=== PATIENT | male | born 1955 | race Caucasian/White ===

== ENCOUNTER → 2017-11-14 | Outpatient (CLI) | payer BC ==
[2017-11-14 11:10] LABS: ADD MAN DIFF? NO
[2017-11-14 11:22] LABS: WHITE BLOOD COUNT 5.4 10^3/ul (4.8-10.8)
[2017-11-14 11:23] LABS: BASOPHIL # 0.1 10^3/ul (0.0-0.1); BASOPHILS % 1.1 % (0.0-2.0); EOSINOPHILS # 0.2 10^3/ul (0.0-0.5); HEMATOCRIT 43.7 % (42.0-52.0); HEMOGLOBIN 15.6 g/dl (14.0-18.0); LYMPHOCYTES # 1.8 10^3/ul (0.8-2.9); LYMPHOCYTES % 33.1 % (15.0-51.0); MEAN CORPUSCULAR HEMOGLOBIN 30.7 pg (29.0-33.0); MEAN CORPUSCULAR HGB CONC 35.7 g/dl (32.0-37.0); MEAN PLATELET VOLUME 9.6 fl (7.4-10.4); MONOCYTE # 0.4 10^3/ul (0.3-0.9); MONOCYTES % 6.8 % (0.0-11.0); NEUTROPHILS % 55.6 % (39.0-77.0); PLATELET COUNT 235 10^3/UL (140-415); RED BLOOD COUNT 5.08 10^6/ul (4.70-6.10); RED CELL DISTRIBUTION WIDTH 12.9 % (11.5-14.5)
[2017-11-14 11:45] LABS: ALANINE AMINOTRANSFERASE 28 IU/L (13-69); ALBUMIN 4.3 g/dl (3.3-4.9); ALBUMIN/GLOBULIN RATIO 1.53; ALKALINE PHOSPHATASE 78 IU/L (42-121); ANION GAP 13 (8-16); ASPARTATE AMINO TRANSFERASE 22 IU/L (15-46); BILIRUBIN,INDIRECT 1.1 mg/dl (0-1.1); BILIRUBIN,TOTAL 1.1 mg/dl (0.2-1.3); BLOOD UREA NITROGEN 21 mg/dl (7-20); CARBON DIOXIDE 27 mmol/L (21-31); CHLORIDE 106 mmol/L (97-110); CHOL/HDL RATIO 4.8 RATIO; CHOLESTEROL 192 mg/dl (100-200); CREATININE 0.81 mg/dl (0.61-1.24); GLUCOSE 117 mg/dl (70-220); HDL CHOLESTEROL 40 mg/dl (30-78); LDL CHOLESTEROL,CALCULATED 129 mg/dl; POTASSIUM 4.1 mmol/L (3.5-5.1); SODIUM 142 mmol/L (135-144); TOTAL PROTEIN 7.1 g/dl (6.1-8.1); TRIGLYCERIDES 113 mg/dl (0-149)
[2017-11-14 11:48] LABS: HEMOGLOBIN A1C 5.9 % (0-5.9)
[2017-11-14 11:53] LABS: PT RATIO 1.2
[2017-11-14 12:29] LABS: INR 1.22; PROTIME 15.6 Sec (11.9-14.9)
== END | disposition home or self-care (01) ==
LOC: LAB 10:57
DX: N40.0 Benign prostatic hyperplasia without lower urinary tract symptoms (principal); E78.5 Hyperlipidemia, unspecified; D68.59 Other primary thrombophilia
CPT/HCPCS: 80053; 80061; 83036; 84153; 84154; 85025; 85610

== ENCOUNTER → 2018-06-25 | Outpatient (CLI) | payer BC ==
[2018-06-25 10:04] LABS: ADD MAN DIFF? NO
[2018-06-25 10:15] LABS: BASOPHILS % 0.6 % (0.0-2.0); EOSINOPHILS # 0.1 10^3/ul (0.0-0.5); EOSINOPHILS % 2.2 % (0.0-7.0); HEMATOCRIT 46.6 % (42.0-52.0); HEMOGLOBIN 15.8 g/dl (14.0-18.0); LYMPHOCYTES # 1.9 10^3/ul (0.8-2.9); LYMPHOCYTES % 30.3 % (15.0-51.0); MEAN CORPUSCULAR HEMOGLOBIN 30.1 pg (29.0-33.0); MEAN CORPUSCULAR HGB CONC 33.9 g/dl (32.0-37.0); MEAN CORPUSCULAR VOLUME 88.8 fl (82.0-101.0); MEAN PLATELET VOLUME 10.4 fl (7.4-10.4); MONOCYTE # 0.4 10^3/ul (0.3-0.9); MONOCYTES % 6.8 % (0.0-11.0); NEUTROPHIL # 3.8 10^3/ul (1.6-7.5); NEUTROPHILS % 59.8 % (39.0-77.0); PLATELET COUNT 234 10^3/UL (140-415); RED BLOOD COUNT 5.25 10^6/ul (4.70-6.10); RED CELL DISTRIBUTION WIDTH 13.7 % (11.5-14.5)
[2018-06-25 10:15] LABS: WHITE BLOOD COUNT 6.3 10^3/ul (4.8-10.8)
[2018-06-25 10:36] LABS: INR 1.85; PROTIME 21.8 Sec (11.9-14.9); PT RATIO 1.7
[2018-06-25 10:39] LABS: ALANINE AMINOTRANSFERASE 29 IU/L (13-69); ALBUMIN 3.7 g/dl (3.3-4.9); ALBUMIN/GLOBULIN RATIO 1.15; ALKALINE PHOSPHATASE 75 IU/L (42-121); ANION GAP 13 (8-16); ASPARTATE AMINO TRANSFERASE 25 IU/L (15-46); BILIRUBIN,INDIRECT 1.2 mg/dl (0-1.1); BILIRUBIN,TOTAL 1.2 mg/dl (0.2-1.3); BLOOD UREA NITROGEN 23 mg/dl (7-20); CALCIUM 9.2 mg/dl (8.4-10.2); CARBON DIOXIDE 25 mmol/L (21-31); CHLORIDE 107 mmol/L (97-110); CHOL/HDL RATIO 3.7 RATIO; CHOLESTEROL 155 mg/dl (100-200); CREATININE 0.78 mg/dl (0.61-1.24); GLUCOSE 106 mg/dl (70-220); HDL CHOLESTEROL 41 mg/dl (30-78); LDL CHOLESTEROL,CALCULATED 92 mg/dl; SODIUM 141 mmol/L (135-144); TOTAL PROTEIN 6.9 g/dl (6.1-8.1); TRIGLYCERIDES 111 mg/dl (0-149)
[2018-06-25 12:05] LABS: HEMOGLOBIN A1C 5.7 % (0-5.9)
== END | disposition home or self-care (01) ==
LOC: LAB 09:45
DX: D68.59 Other primary thrombophilia (principal); E78.5 Hyperlipidemia, unspecified; R73.03 Prediabetes
CPT/HCPCS: 80053; 80061; 83036; 85025; 85610

== ENCOUNTER → 2018-12-10 | Outpatient (CLI) | payer BC ==
[2018-12-10 09:50] LABS: ADD MAN DIFF? NO
[2018-12-10 09:53] LABS: WHITE BLOOD COUNT 6.9 10^3/ul (4.8-10.8)
[2018-12-10 09:53] LABS: BASOPHILS % 0.6 % (0.0-2.0); EOSINOPHILS # 0.1 10^3/ul (0.0-0.5); HEMATOCRIT 47.6 % (42.0-52.0); HEMOGLOBIN 15.9 g/dl (14.0-18.0); LYMPHOCYTES # 1.7 10^3/ul (0.8-2.9); LYMPHOCYTES % 24.5 % (15.0-51.0); MEAN CORPUSCULAR HEMOGLOBIN 29.8 pg (29.0-33.0); MEAN CORPUSCULAR HGB CONC 33.4 g/dl (32.0-37.0); MEAN CORPUSCULAR VOLUME 89.1 fl (82.0-101.0); MEAN PLATELET VOLUME 10.2 fl (7.4-10.4); MONOCYTE # 0.6 10^3/ul (0.3-0.9); MONOCYTES % 8.1 % (0.0-11.0); NEUTROPHIL # 4.4 10^3/ul (1.6-7.5); NEUTROPHILS % 64.4 % (39.0-77.0); PLATELET COUNT 246 10^3/UL (140-415); RED BLOOD COUNT 5.34 10^6/ul (4.70-6.10); RED CELL DISTRIBUTION WIDTH 13.2 % (11.5-14.5)
[2018-12-10 10:15] LABS: ALANINE AMINOTRANSFERASE 20 IU/L (13-69); ALBUMIN 4.2 g/dl (3.3-4.9); ALKALINE PHOSPHATASE 88 IU/L (42-121); ANION GAP 8 (5-13); ASPARTATE AMINO TRANSFERASE 19 IU/L (15-46); BILIRUBIN,INDIRECT 0.7 mg/dl (0-1.1); BILIRUBIN,TOTAL 0.7 mg/dl (0.2-1.3); BLOOD UREA NITROGEN 21 mg/dl (7-20); CALCIUM 9.5 mg/dl (8.4-10.2); CARBON DIOXIDE 25 mmol/L (21-31); CHLORIDE 110 mmol/L (97-110); CHOL/HDL RATIO 4.1 RATIO; CHOLESTEROL 165 mg/dl (100-200); CREATININE 0.84 mg/dl (0.61-1.24); Estimated GFR > 60 mL/min (>60); GLUCOSE 125 mg/dl (70-220); HDL CHOLESTEROL 40 mg/dl (30-78); LDL CHOLESTEROL,CALCULATED 108 mg/dl; POTASSIUM 4.1 mmol/L (3.5-5.1); SODIUM 143 mmol/L (135-144); TOTAL PROTEIN 7.2 g/dl (6.1-8.1); TRIGLYCERIDES 86 mg/dl (0-149)
[2018-12-10 10:28] LABS: INR 1.81; PROTIME 21.1 Sec (11.9-14.9); PT RATIO 1.6
[2018-12-10 12:33] LABS: PROSTATE SPECIFIC ANTIGEN 1.1 ng/ml (0.0-4.0)
== END | disposition home or self-care (01) ==
LOC: LAB 09:31
DX: J44.9 Chronic obstructive pulmonary disease, unspecified (principal); D68.59 Other primary thrombophilia; E78.5 Hyperlipidemia, unspecified
CPT/HCPCS: 71046; 80053; 80061; 84153; 84154; 85025; 85610

== ENCOUNTER 2018-12-30 10:58 | Inpatient (IN) | payer BC ==
[2018-12-30] MEDS: ONDANSETRON 4 MG INJ IV (11:36)
[2018-12-30] MEDS: SOD CHLORIDE 0.9% 1,000 ML IV (11:36)
[2018-12-30] MEDS: morphine 4 MG/ML VIAL IV ×3 (11:37→19:48)
[2018-12-30 11:42] LABS: ADD MAN DIFF? NO
[2018-12-30 11:43] LABS: WHITE BLOOD COUNT 15.7 10^3/ul (4.8-10.8)
[2018-12-30 11:43] LABS: BASOPHIL # 0.1 10^3/ul (0.0-0.1); BASOPHILS % 0.3 % (0.0-2.0); EOSINOPHILS % 0.1 % (0.0-7.0); HEMATOCRIT 43.1 % (42.0-52.0); HEMOGLOBIN 14.6 g/dl (14.0-18.0); LYMPHOCYTES # 1.2 10^3/ul (0.8-2.9); LYMPHOCYTES % 7.9 % (15.0-51.0); MEAN CORPUSCULAR HEMOGLOBIN 30.5 pg (29.0-33.0); MEAN CORPUSCULAR HGB CONC 33.9 g/dl (32.0-37.0); MEAN CORPUSCULAR VOLUME 90.2 fl (82.0-101.0); MEAN PLATELET VOLUME 10.5 fl (7.4-10.4); MONOCYTE # 1.1 10^3/ul (0.3-0.9); MONOCYTES % 6.7 % (0.0-11.0); NEUTROPHIL # 13.2 10^3/ul (1.6-7.5); NEUTROPHILS % 84.4 % (39.0-77.0); PLATELET COUNT 196 10^3/UL (140-415); RED BLOOD COUNT 4.78 10^6/ul (4.70-6.10); RED CELL DISTRIBUTION WIDTH 13.2 % (11.5-14.5)
[2018-12-30 12:04] LABS: INR 2.08; PROTIME 23.5 Sec (11.9-14.9); PT RATIO 1.8
[2018-12-30 12:05] LABS: PARTIAL THROMBOPLASTIN TIME 46.2 Sec (23.0-35.0)
[2018-12-30 12:07] LABS: ANION GAP 6 (5-13); BLOOD UREA NITROGEN 13 mg/dl (7-20); CALCIUM 9.2 mg/dl (8.4-10.2); CARBON DIOXIDE 28 mmol/L (21-31); CHLORIDE 106 mmol/L (97-110); CREATININE 0.91 mg/dl (0.61-1.24); Estimated GFR > 60 mL/min (>60); GLUCOSE 130 mg/dl (70-220); POTASSIUM 4.1 mmol/L (3.5-5.1); SODIUM 140 mmol/L (135-144)
[2018-12-30] MEDS: SOD CHLORIDE 0.9% 100 ML (13:32)
[2018-12-30] MEDS: IOHEXOL 300MG/ML 150 ML BTL (13:32)
[2018-12-30] MEDS: PIPER-TAZO 3.375 GM IV (PMX) 100 ML IVPB ×2 (14:29→19:43)
[2018-12-30] MEDS ORDERED: ONDANSETRON 4 MG INJ IV (15:00)
[2018-12-30] MEDS: ACETAMINOPHEN 325 MG TAB PO ×2 (17:33→21:40)
[2018-12-30] MEDS ORDERED: VANCOMYCIN IV PER PHARMACY XX (18:30)
[2018-12-30] MEDS ORDERED: VANCOMYCIN 1 GM (PMX) 250 ML IVPB (18:30)
[2018-12-30] MEDS: ATORVASTATIN 20 MG TAB PO (21:09)
[2018-12-30] MEDS: VANCOMYCIN HCL 2 GM in SOD CHLORIDE 0.9% 500 ML IVPB (21:40)
[2018-12-31] MEDS: PIPER-TAZO 3.375 GM IV (PMX) 100 ML IVPB ×4 (01:11→17:49)
[2018-12-31] MEDS: morphine 4 MG/ML VIAL IV ×5 (02:00→21:02)
[2018-12-31 07:48] LABS: ADD MAN DIFF? NO
[2018-12-31 07:50] LABS: BASOPHIL # 0.1 10^3/ul (0.0-0.1); BASOPHILS % 0.4 % (0.0-2.0); EOSINOPHILS % 0.1 % (0.0-7.0); HEMATOCRIT 40.4 % (42.0-52.0); HEMOGLOBIN 13.4 g/dl (14.0-18.0); LYMPHOCYTES # 1.1 10^3/ul (0.8-2.9); MEAN CORPUSCULAR HEMOGLOBIN 30.3 pg (29.0-33.0); MEAN CORPUSCULAR HGB CONC 33.2 g/dl (32.0-37.0); MEAN CORPUSCULAR VOLUME 91.4 fl (82.0-101.0); MONOCYTES % 6.5 % (0.0-11.0); NEUTROPHILS % 85.3 % (39.0-77.0); PLATELET COUNT 185 10^3/UL (140-415); RED BLOOD COUNT 4.42 10^6/ul (4.70-6.10); RED CELL DISTRIBUTION WIDTH 13.2 % (11.5-14.5)
[2018-12-31 07:50] LABS: WHITE BLOOD COUNT 15.3 10^3/ul (4.8-10.8)
[2018-12-31 08:10] LABS: ALANINE AMINOTRANSFERASE 20 IU/L (13-69); ALBUMIN 3.6 g/dl (3.3-4.9); ALBUMIN/GLOBULIN RATIO 1.24; ALKALINE PHOSPHATASE 83 IU/L (42-121); ANION GAP 6 (5-13); ASPARTATE AMINO TRANSFERASE 19 IU/L (15-46); BILIRUBIN,INDIRECT 1.2 mg/dl (0-1.1); BILIRUBIN,TOTAL 1.2 mg/dl (0.2-1.3); BLOOD UREA NITROGEN 17 mg/dl (7-20); CALCIUM 8.8 mg/dl (8.4-10.2); CARBON DIOXIDE 26 mmol/L (21-31); CHLORIDE 108 mmol/L (97-110); CREATININE 0.89 mg/dl (0.61-1.24); Estimated GFR > 60 mL/min (>60); GLUCOSE 133 mg/dl (70-220); POTASSIUM 3.8 mmol/L (3.5-5.1); SODIUM 140 mmol/L (135-144); TOTAL PROTEIN 6.5 g/dl (6.1-8.1)
[2018-12-31 08:21] LABS: INR 2.27; PROTIME 25.1 Sec (11.9-14.9)
[2018-12-31 08:22] LABS: PARTIAL THROMBOPLASTIN TIME 54.8 Sec (23.0-35.0)
[2018-12-31] MEDS: VANCOMYCIN HCL 1.5 GM in SOD CHLORIDE 0.9% 250 ML IVPB ×2 (09:13→21:02)
[2018-12-31] MEDS: NS + KCL 20 MEQ 1,000 ML IV (14:18)
[2018-12-31] MEDS: ACETAMINOPHEN 325 MG TAB PO (14:22)
[2018-12-31] MEDS: PHYTONADIONE 10 MG in DEXTROSE 5% 50 ML IVPB (16:07)
[2018-12-31] MEDS: PHYTONADIONE (1 MG/ML PO SYG) PO (16:07)
[2018-12-31] MEDS: ATORVASTATIN 20 MG TAB PO (21:02)
[2019-01-01] MEDS: PIPER-TAZO 3.375 GM IV (PMX) 100 ML IVPB ×4 (00:30→18:00)
[2019-01-01] MEDS: NS + KCL 20 MEQ 1,000 ML IV ×2 (00:30→05:49)
[2019-01-01] MEDS: ONDANSETRON 4 MG INJ IV (02:58)
[2019-01-01] MEDS: HYDROmorphONE 2 MG/ML SYG IV ×2 (02:58→10:16)
[2019-01-01] MEDS ORDERED: DESFLURANE 15 MIN (07:00)
[2019-01-01 08:59] LABS: ADD MAN DIFF? NO
[2019-01-01] MEDS: PHYTONADIONE (1 MG/ML PO SYG) PO (09:00)
[2019-01-01 09:10] LABS: WHITE BLOOD COUNT 13.4 10^3/ul (4.8-10.8)
[2019-01-01 09:10] LABS: BASOPHILS % 0.3 % (0.0-2.0); EOSINOPHILS % 0.3 % (0.0-7.0); HEMATOCRIT 37.6 % (42.0-52.0); HEMOGLOBIN 12.7 g/dl (14.0-18.0); LYMPHOCYTES # 1.4 10^3/ul (0.8-2.9); LYMPHOCYTES % 10.2 % (15.0-51.0); MEAN CORPUSCULAR HEMOGLOBIN 30.4 pg (29.0-33.0); MEAN CORPUSCULAR HGB CONC 33.8 g/dl (32.0-37.0); MEAN PLATELET VOLUME 11.4 fl (7.4-10.4); MONOCYTE # 0.9 10^3/ul (0.3-0.9); MONOCYTES % 6.9 % (0.0-11.0); NEUTROPHILS % 81.6 % (39.0-77.0); PLATELET COUNT 186 10^3/UL (140-415); POSITIVE DIFF @See below; RED BLOOD COUNT 4.18 10^6/ul (4.70-6.10); RED CELL DISTRIBUTION WIDTH 13.2 % (11.5-14.5)
[2019-01-01 09:23] LABS: INR 1.27; PT RATIO 1.3
[2019-01-01 09:24] LABS: PARTIAL THROMBOPLASTIN TIME 40.5 Sec (23.0-35.0)
[2019-01-01 09:46] LABS: ANION GAP 8 (5-13); ANISOCYTOSIS 1+ (0-0); BAND NEUTROPHILS #M 0.4 10^3/ul (0.0-0.6); BAND NEUTROPHILS % (M) 3 % (0-4); BASOPHIL #M 0.1 10^3/ul (0.0-0.0); BASOPHILS % (M) 1 % (0-2); BLOOD UREA NITROGEN 15 mg/dl (7-20); CALCIUM 8.4 mg/dl (8.4-10.2); CARBON DIOXIDE 24 mmol/L (21-31); CHLORIDE 105 mmol/L (97-110); CREATININE 0.89 mg/dl (0.61-1.24); Estimated GFR > 60 mL/min (>60); GIANT THROMBO% (M) 1 % (0-0); GLUCOSE 112 mg/dl (70-220); LYMPHOCYTES % (M) 8 % (15-51); MAGNESIUM 2.2 mg/dl (1.7-2.5); MICROCYTOSIS 1+ (0-0); MONOCYTE #M 0.9 10^3/ul (0.3-0.9); MONOCYTES % (M) 7 % (0-11); PLATELET ESTIMATE NORMAL; POLYCHROMASIA 1+ (0-0); POTASSIUM 3.8 mmol/L (3.5-5.1); REACTIVE LYMPHOCYTES #M 0.1 10^3/ul (0.0-0.0); REACTIVE LYMPHOCYTES% (M) 1 % (0-0); SEG NEUT #M 10.8 10^3/ul (1.6-7.5); SEGMENTED NEUTROPHILS (M) % 80 % (39-77); SMUDGE%M 2 % (0-0); SODIUM 137 mmol/L (135-144)
[2019-01-01 10:02] LABS: VANCOMYCIN,TROUGH 7.5 ug/ml (10.0-20.0)
[2019-01-01] MEDS: VANCOMYCIN HCL 1.5 GM in SOD CHLORIDE 0.9% 250 ML IVPB (10:12)
[2019-01-01] MEDS: DEXTROSE 5%-0.45% NACL 1,000 ML IV (13:50)
[2019-01-01] MEDS ORDERED: LIDOCAINE 1% (MPF) 30 ML INJ (18:30)
[2019-01-01] MEDS ORDERED: ROCURONIUM 50 MG INJ (18:45)
[2019-01-01] MEDS ORDERED: CEFAZOLIN 1 GM INJ (18:45)
[2019-01-01] MEDS ORDERED: GLYCOPYRROLATE 0.4 MG INJ (18:45)
[2019-01-01] MEDS ORDERED: PROPOFOL 20 ML (18:45)
[2019-01-01] MEDS ORDERED: NEOSTIGMINE 3 MG/3 ML SYRINGE (18:46)
[2019-01-01] MEDS ORDERED: DEXAMETHASONE 4 MG/ML 5 ML INJ (18:46)
[2019-01-01] MEDS ORDERED: MIDAZOLAM 1 MG/ML 2 ML INJ (18:46)
[2019-01-01] MEDS ORDERED: FENTAnyl 50 MCG/ML VIAL (18:46)
[2019-01-01] MEDS ORDERED: ONDANSETRON 4 MG INJ (18:46)
[2019-01-01] MEDS: LIDOCAINE 1%/EPI (1:100,000) (MDV) 20 ML (19:08)
[2019-01-01] MEDS: BUPIVACAINE 0.5% (SDV) 30 ML INJ (19:08)
[2019-01-01] MEDS ORDERED: EPHEDrine SULFATE 50 MG/5 ML SYG IV (20:00)
[2019-01-01] MEDS ORDERED: ONDANSETRON 4 MG INJ IV (20:00)
[2019-01-01] MEDS ORDERED: IPRATROPIUM (NEB) 0.5 MG/2.5 ML AMP HHN (20:00)
[2019-01-01] MEDS ORDERED: OXYCODONE/ACETAMINOPHEN (5/325) TAB PO (20:00)
[2019-01-01] MEDS ORDERED: FENTAnyl 50 MCG/ML VIAL IV ×3 (20:00)
[2019-01-01] MEDS ORDERED: MIDAZOLAM 1 MG/ML 2 ML INJ IV (20:00)
[2019-01-01] MEDS ORDERED: DIPHENHYDRAMINE 50 MG INJ IV (20:00)
[2019-01-01] MEDS ORDERED: hydrALAzine 20 MG INJ IV (20:00)
[2019-01-01] MEDS ORDERED: HYDROmorphONE 1 MG/5 ML IV SYRINGE IV ×2 (20:00)
[2019-01-01] MEDS ORDERED: ALBUTEROL 0.083% (NEB) 2.5 MG/3 ML AMP HHN (20:00)
[2019-01-01] MEDS ORDERED: MEPERIDINE 25 MG INJ IV (20:00)
[2019-01-01] MEDS ORDERED: LABETALOL HCL 20MG INJ IV (20:00)
[2019-01-01] MEDS ORDERED: TRIMETHOBENZAMIDE 100 MG/ML VIAL IM (20:00)
[2019-01-01] MEDS: OXYCODONE/ACETAMINOPHEN (5/325) TAB PO (20:56)
[2019-01-01] MEDS: HYDROmorphONE 1 MG/5 ML IV SYRINGE IV (20:56)
[2019-01-01] MEDS: ATORVASTATIN 20 MG TAB PO (21:43)
[2019-01-01] MEDS: VANCOMYCIN HCL 1.75 GM in SOD CHLORIDE 0.9% 500 ML IVPB (21:43)
[2019-01-02] MEDS: DEXTROSE 5%-0.45% NACL 1,000 ML IV ×2 (00:50→14:50)
[2019-01-02] MEDS: PIPER-TAZO 3.375 GM IV (PMX) 100 ML IVPB ×4 (00:50→17:43)
[2019-01-02] MEDS: DOCUSATE SODIUM 100 MG CAP PO ×2 (09:51→21:31)
[2019-01-02] MEDS: PHYTONADIONE (1 MG/ML PO SYG) PO (09:52)
[2019-01-02] MEDS: VANCOMYCIN HCL 1.75 GM in SOD CHLORIDE 0.9% 500 ML IVPB ×2 (09:53→21:31)
[2019-01-02] MEDS: WARFARIN 7.5 MG TAB PO (17:42)
[2019-01-02] MEDS: ATORVASTATIN 20 MG TAB PO (21:31)
[2019-01-02] MEDS: HYDROCODONE/APAP (5/325) TAB PO (21:39)
[2019-01-03] MEDS: PIPER-TAZO 3.375 GM IV (PMX) 100 ML IVPB ×5 (01:36→23:55)
[2019-01-03] MEDS: DEXTROSE 5%-0.45% NACL 1,000 ML IV ×3 (05:17→21:14)
[2019-01-03 06:12] LABS: WHITE BLOOD COUNT 15.1 10^3/ul (4.8-10.8)
[2019-01-03 06:12] LABS: HEMATOCRIT 36.1 % (42.0-52.0); HEMOGLOBIN 12.2 g/dl (14.0-18.0); MEAN CORPUSCULAR HEMOGLOBIN 29.8 pg (29.0-33.0); MEAN CORPUSCULAR HGB CONC 33.8 g/dl (32.0-37.0); MEAN CORPUSCULAR VOLUME 88.3 fl (82.0-101.0); MEAN PLATELET VOLUME 11.3 fl (7.4-10.4); PLATELET COUNT 240 10^3/UL (140-415); POSITIVE DIFF @See below; RED BLOOD COUNT 4.09 10^6/ul (4.70-6.10); RED CELL DISTRIBUTION WIDTH 12.7 % (11.5-14.5)
[2019-01-03 06:15] LABS: ADD MAN DIFF? YES
[2019-01-03 06:37] LABS: INR 1.13; PROTIME 14.6 Sec (11.9-14.9); PT RATIO 1.1
[2019-01-03 06:40] LABS: ANION GAP 7 (5-13); BLOOD UREA NITROGEN 19 mg/dl (7-20); CALCIUM 8.7 mg/dl (8.4-10.2); CARBON DIOXIDE 25 mmol/L (21-31); CHLORIDE 109 mmol/L (97-110); CREATININE 0.83 mg/dl (0.61-1.24); Estimated GFR > 60 mL/min (>60); GLUCOSE 198 mg/dl (70-220); POTASSIUM 3.8 mmol/L (3.5-5.1); SODIUM 141 mmol/L (135-144)
[2019-01-03 08:08] LABS: BAND NEUTROPHILS #M 2.4 10^3/ul (0.0-0.6); BAND NEUTROPHILS % (M) 16 % (0-4); BASOPHIL #M 0.1 10^3/ul (0.0-0.0); BASOPHILS % (M) 1 % (0-2); LYMPHOCYTES % (M) 7 % (15-51); MONOCYTE #M 0.4 10^3/ul (0.3-0.9); MONOCYTES % (M) 3 % (0-11); PLATELET ESTIMATE NORMAL; POIKILOCYTOSIS 1+ (0-0); REACTIVE LYMPHOCYTES #M 0.7 10^3/ul (0.0-0.0); REACTIVE LYMPHOCYTES% (M) 5 % (0-0); SEG NEUT #M 10.6 10^3/ul (1.6-7.5); SEGMENTED NEUTROPHILS (M) % 68 % (39-77); SMUDGE%M 6 % (0-0)
[2019-01-03] MEDS: FLUCONAZOLE 200 MG TAB PO (08:46)
[2019-01-03] MEDS: DOCUSATE SODIUM 100 MG CAP PO ×2 (08:46→20:32)
[2019-01-03] MEDS: HYDROCODONE/APAP (5/325) TAB PO (15:02)
[2019-01-03] MEDS: WARFARIN 10 MG TAB PO (17:48)
[2019-01-03] MEDS: ATORVASTATIN 20 MG TAB PO (20:32)
[2019-01-04] MEDS: PIPER-TAZO 3.375 GM IV (PMX) 100 ML IVPB ×3 (06:08→18:10)
[2019-01-04 06:18] LABS: ABNORMAL IP MESSAGE 1; HEMATOCRIT 37.6 % (42.0-52.0); HEMOGLOBIN 12.5 g/dl (14.0-18.0); MEAN CORPUSCULAR HEMOGLOBIN 29.4 pg (29.0-33.0); MEAN CORPUSCULAR HGB CONC 33.2 g/dl (32.0-37.0); MEAN CORPUSCULAR VOLUME 88.5 fl (82.0-101.0); MEAN PLATELET VOLUME 10.7 fl (7.4-10.4); PLATELET COUNT 244 10^3/UL (140-415); POSITIVE DIFF @See below; RED BLOOD COUNT 4.25 10^6/ul (4.70-6.10); RED CELL DISTRIBUTION WIDTH 13.2 % (11.5-14.5)
[2019-01-04 06:18] LABS: WHITE BLOOD COUNT 9.4 10^3/ul (4.8-10.8)
[2019-01-04 06:23] LABS: ADD MAN DIFF? YES
[2019-01-04 06:46] LABS: PROTIME 14.3 Sec (11.9-14.9); PT RATIO 1.1
[2019-01-04 06:49] LABS: ANION GAP 7 (5-13); BLOOD UREA NITROGEN 19 mg/dl (7-20); CALCIUM 8.9 mg/dl (8.4-10.2); CARBON DIOXIDE 26 mmol/L (21-31); CHLORIDE 108 mmol/L (97-110); CREATININE 0.98 mg/dl (0.61-1.24); Estimated GFR > 60 mL/min (>60); GLUCOSE 144 mg/dl (70-220); SODIUM 141 mmol/L (135-144)
[2019-01-04 07:48] LABS: ANISOCYTOSIS 1+ (0-0); BAND NEUTROPHILS % (M) 11 % (0-4); BASOPHILS % (M) 1 % (0-2); EOSINOPHILS % (M) 1 % (0-7); GIANT THROMBO% (M) 4 % (0-0); LYMPHOCYTES #M 2.7 10^3/ul (0.8-2.9); LYMPHOCYTES % (M) 29 % (15-51); METAMYELOCYTES %M 1 % (0-0); MONOCYTE #M 0.2 10^3/ul (0.3-0.9); MONOCYTES % (M) 3 % (0-11); MYELOCYTES #M 0.4 10^3/ul (0.0-0.0); MYELOCYTES % (M) 5 % (0-0); PLATELET ESTIMATE NORMAL; POIKILOCYTOSIS 1+ (0-0); REACTIVE LYMPHOCYTES% (M) 1 % (0-0); SEG NEUT #M 4.6 10^3/ul (1.6-7.5); SEGMENTED NEUTROPHILS (M) % 48 % (39-77); SMUDGE%M 3 % (0-0); TARGET CELLS 1+ (0-0)
[2019-01-04] MEDS: DOCUSATE SODIUM 100 MG CAP PO ×2 (08:47→20:42)
[2019-01-04] MEDS: FLUCONAZOLE 200 MG TAB PO (08:47)
[2019-01-04] MEDS: TRIMETHOPRIM/SULFAMETHOX (DS) TAB PO ×2 (09:58→20:42)
[2019-01-04] MEDS: DEXTROSE 5%-0.45% NACL 1,000 ML IV (12:30)
[2019-01-04] MEDS: WARFARIN 7.5 MG TAB PO (18:23)
[2019-01-04] MEDS: ATORVASTATIN 20 MG TAB PO (20:42)
[2019-01-04] MEDS: HYDROCODONE/APAP (5/325) TAB PO (20:54)
[2019-01-04] MEDS: TRIAMCINOLONE ACET 0.025% 15 GM CR TOP (21:20)
[2019-01-05] MEDS: PIPER-TAZO 3.375 GM IV (PMX) 100 ML IVPB ×4 (00:10→21:43)
[2019-01-05] MEDS: DEXTROSE 5%-0.45% NACL 1,000 ML IV ×2 (06:15→21:40)
[2019-01-05 06:57] LABS: ABNORMAL IP MESSAGE 1; HEMATOCRIT 40.2 % (42.0-52.0); HEMOGLOBIN 13.4 g/dl (14.0-18.0); MEAN CORPUSCULAR HEMOGLOBIN 29.8 pg (29.0-33.0); MEAN CORPUSCULAR HGB CONC 33.3 g/dl (32.0-37.0); MEAN CORPUSCULAR VOLUME 89.5 fl (82.0-101.0); MEAN PLATELET VOLUME 10.4 fl (7.4-10.4); PLATELET COUNT 278 10^3/UL (140-415); POSITIVE DIFF @See below; RED BLOOD COUNT 4.49 10^6/ul (4.70-6.10)
[2019-01-05 06:57] LABS: WHITE BLOOD COUNT 10.8 10^3/ul (4.8-10.8)
[2019-01-05 07:02] LABS: ADD MAN DIFF? YES
[2019-01-05 07:13] LABS: INR 1.35; PROTIME 16.8 Sec (11.9-14.9); PT RATIO 1.3
[2019-01-05 07:47] LABS: ANION GAP 7 (5-13); BLOOD UREA NITROGEN 16 mg/dl (7-20); CARBON DIOXIDE 27 mmol/L (21-31); CHLORIDE 106 mmol/L (97-110); CREATININE 1.06 mg/dl (0.61-1.24); Estimated GFR > 60 mL/min (>60); GLUCOSE 123 mg/dl (70-220); POTASSIUM 3.9 mmol/L (3.5-5.1); SODIUM 140 mmol/L (135-144)
[2019-01-05 08:03] LABS: BAND NEUTROPHILS #M 0.9 10^3/ul (0.0-0.6); BAND NEUTROPHILS % (M) 9 % (0-4); EOSINOPHILS % (M) 2 % (0-7); LYMPHOCYTES #M 4.1 10^3/ul (0.8-2.9); LYMPHOCYTES % (M) 38 % (15-51); MONOCYTE #M 0.5 10^3/ul (0.3-0.9); MONOCYTES % (M) 5 % (0-11); MYELOCYTES #M 0.1 10^3/ul (0.0-0.0); MYELOCYTES % (M) 1 % (0-0); PLATELET ESTIMATE NORMAL; POLYCHROMASIA 1+ (0-0); REACTIVE LYMPHOCYTES #M 0.4 10^3/ul (0.0-0.0); REACTIVE LYMPHOCYTES% (M) 4 % (0-0); SEG NEUT #M 4.5 10^3/ul (1.6-7.5); SEGMENTED NEUTROPHILS (M) % 41 % (39-77); SMUDGE%M 5 % (0-0)
[2019-01-05] MEDS: DOCUSATE SODIUM 100 MG CAP PO ×2 (10:02→21:40)
[2019-01-05] MEDS: FLUCONAZOLE 200 MG TAB PO (10:03)
[2019-01-05] MEDS: TRIMETHOPRIM/SULFAMETHOX (DS) TAB PO ×2 (10:03→21:40)
[2019-01-05] MEDS: TRIAMCINOLONE ACET 0.025% 15 GM CR TOP ×2 (10:04→21:44)
[2019-01-05] MEDS: POTASSIUM CHLORIDE (SR) 20 MEQ TAB PO (14:32)
[2019-01-05] MEDS: WARFARIN 10 MG TAB PO (18:50)
[2019-01-05] MEDS: ATORVASTATIN 20 MG TAB PO (21:40)
[2019-01-06 00:49] LABS: HEMATOCRIT 43.4 % (42.0-52.0); HEMOGLOBIN 14.6 g/dl (14.0-18.0)
[2019-01-06 05:58] LABS: WHITE BLOOD COUNT 12.6 10^3/ul (4.8-10.8)
[2019-01-06 05:58] LABS: ABNORMAL IP MESSAGE 1; HEMATOCRIT 41.8 % (42.0-52.0); HEMOGLOBIN 14.2 g/dl (14.0-18.0); MEAN CORPUSCULAR VOLUME 88.4 fl (82.0-101.0); MEAN PLATELET VOLUME 10.5 fl (7.4-10.4); PLATELET COUNT 300 10^3/UL (140-415); POSITIVE DIFF @See below; RED BLOOD COUNT 4.73 10^6/ul (4.70-6.10); RED CELL DISTRIBUTION WIDTH 13.2 % (11.5-14.5)
[2019-01-06] MEDS: PIPER-TAZO 3.375 GM IV (PMX) 100 ML IVPB ×4 (06:10→19:07)
[2019-01-06 06:11] LABS: ADD MAN DIFF? YES
[2019-01-06 06:16] LABS: INR 1.69; PT RATIO 1.6
[2019-01-06 06:49] LABS: ANION GAP 9 (5-13); BLOOD UREA NITROGEN 20 mg/dl (7-20); CARBON DIOXIDE 27 mmol/L (21-31); CHLORIDE 103 mmol/L (97-110); CREATININE 1.22 mg/dl (0.61-1.24); Estimated GFR 60 mL/min (>60); GLUCOSE 132 mg/dl (70-220); POTASSIUM 4.2 mmol/L (3.5-5.1); SODIUM 139 mmol/L (135-144)
[2019-01-06 07:30] LABS: ANISOCYTOSIS 1+ (0-0); BAND NEUTROPHILS #M 0.2 10^3/ul (0.0-0.6); BAND NEUTROPHILS % (M) 2 % (0-4); BASOPHIL #M 0.1 10^3/ul (0.0-0.0); BASOPHILS % (M) 1 % (0-2); EOSINOPHILS % (M) 3 % (0-7); LYMPHOCYTES #M 4.9 10^3/ul (0.8-2.9); LYMPHOCYTES % (M) 39 % (15-51); METAMYELOCYTES #M 0.1 10^3/ul (0.0-0.0); METAMYELOCYTES %M 1 % (0-0); MONOCYTE #M 0.7 10^3/ul (0.3-0.9); MONOCYTES % (M) 6 % (0-11); MYELOCYTES #M 0.1 10^3/ul (0.0-0.0); MYELOCYTES % (M) 1 % (0-0); PLATELET ESTIMATE NORMAL; POLYCHROMASIA 3+ (0-0); SEG NEUT #M 5.9 10^3/ul (1.6-7.5); SEGMENTED NEUTROPHILS (M) % 47 % (39-77); SMUDGE%M 4 % (0-0)
[2019-01-06] MEDS: FLUCONAZOLE 200 MG TAB PO (10:41)
[2019-01-06] MEDS: DOCUSATE SODIUM 100 MG CAP PO ×2 (10:42→21:32)
[2019-01-06] MEDS: TRIMETHOPRIM/SULFAMETHOX (DS) TAB PO ×2 (10:42→21:32)
[2019-01-06] MEDS: TRIAMCINOLONE ACET 0.025% 15 GM CR TOP ×2 (10:42→21:33)
[2019-01-06] MEDS: HYDROCODONE/APAP (5/325) TAB PO (14:22)
[2019-01-06] MEDS: WARFARIN 10 MG TAB PO (17:25)
[2019-01-06] MEDS: ATORVASTATIN 20 MG TAB PO (21:32)
[2019-01-07] MEDS: PIPER-TAZO 3.375 GM IV (PMX) 100 ML IVPB ×5 (01:35→23:23)
[2019-01-07 08:23] LABS: ADD MAN DIFF? NO
[2019-01-07 08:33] LABS: ABNORMAL IP MESSAGE 1; BASOPHILS % 0.3 % (0.0-2.0); EOSINOPHILS # 0.2 10^3/ul (0.0-0.5); EOSINOPHILS % 1.8 % (0.0-7.0); HEMATOCRIT 46.7 % (42.0-52.0); HEMOGLOBIN 15.7 g/dl (14.0-18.0); LYMPHOCYTES # 2.8 10^3/ul (0.8-2.9); LYMPHOCYTES % 23.4 % (15.0-51.0); MEAN CORPUSCULAR HGB CONC 33.6 g/dl (32.0-37.0); MEAN CORPUSCULAR VOLUME 89.3 fl (82.0-101.0); MEAN PLATELET VOLUME 10.4 fl (7.4-10.4); MONOCYTE # 0.6 10^3/ul (0.3-0.9); MONOCYTES % 5.3 % (0.0-11.0); NEUTROPHIL # 7.1 10^3/ul (1.6-7.5); NEUTROPHILS % 59.1 % (39.0-77.0); PLATELET COUNT 338 10^3/UL (140-415); POSITIVE DIFF @See below; RED BLOOD COUNT 5.23 10^6/ul (4.70-6.10); RED CELL DISTRIBUTION WIDTH 13.2 % (11.5-14.5)
[2019-01-07 08:43] LABS: ANION GAP 12 (5-13); BLOOD UREA NITROGEN 23 mg/dl (7-20); CALCIUM 9.6 mg/dl (8.4-10.2); CARBON DIOXIDE 22 mmol/L (21-31); CHLORIDE 105 mmol/L (97-110); CREATININE 1.27 mg/dl (0.61-1.24); Estimated GFR 57 mL/min (>60); GLUCOSE 125 mg/dl (70-220); POTASSIUM 4.4 mmol/L (3.5-5.1); SODIUM 139 mmol/L (135-144)
[2019-01-07 08:46] LABS: INR 2.05; PROTIME 23.2 Sec (11.9-14.9); PT RATIO 1.8
[2019-01-07 09:00] LABS: T4 (THYROXINE) 10.4 ug/dl (5.5-11.0)
[2019-01-07] MEDS: FLUCONAZOLE 200 MG TAB PO (09:30)
[2019-01-07] MEDS: DOCUSATE SODIUM 100 MG CAP PO ×2 (09:30→20:20)
[2019-01-07] MEDS: TRIMETHOPRIM/SULFAMETHOX (DS) TAB PO ×2 (09:30→20:20)
[2019-01-07] MEDS: TRIAMCINOLONE ACET 0.025% 15 GM CR TOP ×2 (09:31→20:20)
[2019-01-07] MEDS: WARFARIN 7.5 MG TAB PO (17:50)
[2019-01-07] MEDS: ATORVASTATIN 20 MG TAB PO (20:20)
[2019-01-08] MEDS: PIPER-TAZO 3.375 GM IV (PMX) 100 ML IVPB ×4 (05:51→23:45)
[2019-01-08 07:21] LABS: ADD MAN DIFF? NO
[2019-01-08 07:27] LABS: WHITE BLOOD COUNT 9.6 10^3/ul (4.8-10.8)
[2019-01-08 07:27] LABS: ABNORMAL IP MESSAGE 1; BASOPHILS % 0.4 % (0.0-2.0); EOSINOPHILS # 0.2 10^3/ul (0.0-0.5); EOSINOPHILS % 2.3 % (0.0-7.0); HEMOGLOBIN 14.7 g/dl (14.0-18.0); LYMPHOCYTES # 2.6 10^3/ul (0.8-2.9); LYMPHOCYTES % 27.2 % (15.0-51.0); MEAN CORPUSCULAR HEMOGLOBIN 29.9 pg (29.0-33.0); MEAN CORPUSCULAR HGB CONC 33.4 g/dl (32.0-37.0); MEAN CORPUSCULAR VOLUME 89.6 fl (82.0-101.0); MEAN PLATELET VOLUME 10.3 fl (7.4-10.4); MONOCYTE # 0.7 10^3/ul (0.3-0.9); NEUTROPHIL # 5.2 10^3/ul (1.6-7.5); NEUTROPHILS % 53.8 % (39.0-77.0); PLATELET COUNT 309 10^3/UL (140-415); POSITIVE DIFF @See below; RED BLOOD COUNT 4.91 10^6/ul (4.70-6.10); RED CELL DISTRIBUTION WIDTH 13.3 % (11.5-14.5)
[2019-01-08 07:45] LABS: INR 2.53; PROTIME 27.3 Sec (11.9-14.9); PT RATIO 2.1
[2019-01-08] MEDS: FLUCONAZOLE 200 MG TAB PO (09:05)
[2019-01-08] MEDS: DOCUSATE SODIUM 100 MG CAP PO ×2 (09:05→20:11)
[2019-01-08] MEDS: TRIMETHOPRIM/SULFAMETHOX (DS) TAB PO ×2 (09:05→20:11)
[2019-01-08] MEDS: TRIAMCINOLONE ACET 0.025% 15 GM CR TOP ×2 (09:06→20:12)
[2019-01-08] MEDS: HYDROCODONE/APAP (5/325) TAB PO (13:08)
[2019-01-08] MEDS: WARFARIN 2 MG TAB PO (17:29)
[2019-01-08] MEDS: ATORVASTATIN 20 MG TAB PO (20:11)
[2019-01-09] MEDS: PIPER-TAZO 3.375 GM IV (PMX) 100 ML IVPB ×4 (05:06→23:22)
[2019-01-09 06:29] LABS: ADD MAN DIFF? NO
[2019-01-09 06:31] LABS: WHITE BLOOD COUNT 7.4 10^3/ul (4.8-10.8)
[2019-01-09 06:31] LABS: BASOPHIL # 0.1 10^3/ul (0.0-0.1); BASOPHILS % 1.5 % (0.0-2.0); EOSINOPHILS # 0.2 10^3/ul (0.0-0.5); HEMATOCRIT 43.1 % (42.0-52.0); HEMOGLOBIN 14.3 g/dl (14.0-18.0); LYMPHOCYTES # 2.5 10^3/ul (0.8-2.9); LYMPHOCYTES % 33.5 % (15.0-51.0); MEAN CORPUSCULAR HEMOGLOBIN 29.8 pg (29.0-33.0); MEAN CORPUSCULAR HGB CONC 33.2 g/dl (32.0-37.0); MEAN CORPUSCULAR VOLUME 89.8 fl (82.0-101.0); MEAN PLATELET VOLUME 10.3 fl (7.4-10.4); MONOCYTE # 0.6 10^3/ul (0.3-0.9); MONOCYTES % 7.6 % (0.0-11.0); NEUTROPHIL # 3.7 10^3/ul (1.6-7.5); NEUTROPHILS % 49.8 % (39.0-77.0); PLATELET COUNT 288 10^3/UL (140-415); RED CELL DISTRIBUTION WIDTH 13.2 % (11.5-14.5)
[2019-01-09 06:53] LABS: ANION GAP 8 (5-13); BLOOD UREA NITROGEN 26 mg/dl (7-20); CALCIUM 9.4 mg/dl (8.4-10.2); CARBON DIOXIDE 23 mmol/L (21-31); CHLORIDE 107 mmol/L (97-110); CREATININE 1.19 mg/dl (0.61-1.24); Estimated GFR > 60 mL/min (>60); GLUCOSE 106 mg/dl (70-220); POTASSIUM 4.3 mmol/L (3.5-5.1); SODIUM 138 mmol/L (135-144)
[2019-01-09 06:55] LABS: INR 2.84; PROTIME 29.9 Sec (11.9-14.9); PT RATIO 2.3
[2019-01-09] MEDS: DOCUSATE SODIUM 100 MG CAP PO ×2 (08:29→20:15)
[2019-01-09] MEDS: TRIMETHOPRIM/SULFAMETHOX (DS) TAB PO ×2 (08:30→20:15)
[2019-01-09] MEDS: FLUCONAZOLE 200 MG TAB PO (08:30)
[2019-01-09] MEDS: TRIAMCINOLONE ACET 0.025% 15 GM CR TOP ×2 (08:30→20:16)
[2019-01-09] MEDS: WARFARIN 2 MG TAB PO (17:04)
[2019-01-09] MEDS: ATORVASTATIN 20 MG TAB PO (20:15)
[2019-01-10] MEDS: PIPER-TAZO 3.375 GM IV (PMX) 100 ML IVPB ×3 (05:48→18:50)
[2019-01-10 06:44] LABS: PROTIME 27.9 Sec (11.9-14.9); PT RATIO 2.2
[2019-01-10] MEDS: DOCUSATE SODIUM 100 MG CAP PO ×2 (09:32→21:02)
[2019-01-10] MEDS: TRIMETHOPRIM/SULFAMETHOX (DS) TAB PO ×2 (09:32→21:02)
[2019-01-10] MEDS: FLUCONAZOLE 200 MG TAB PO (09:32)
[2019-01-10] MEDS: TRIAMCINOLONE ACET 0.025% 15 GM CR TOP ×2 (09:33→21:02)
[2019-01-10] MEDS: WARFARIN 3 MG TAB PO (18:50)
[2019-01-10] MEDS: ATORVASTATIN 20 MG TAB PO (21:02)
[2019-01-11] MEDS: PIPER-TAZO 3.375 GM IV (PMX) 100 ML IVPB ×4 (00:16→18:17)
[2019-01-11 06:35] LABS: INR 2.58; PROTIME 27.7 Sec (11.9-14.9); PT RATIO 2.2
[2019-01-11] MEDS: TRIMETHOPRIM/SULFAMETHOX (DS) TAB PO ×2 (09:03→21:30)
[2019-01-11] MEDS: DOCUSATE SODIUM 100 MG CAP PO ×2 (09:04→21:30)
[2019-01-11] MEDS: TRIAMCINOLONE ACET 0.025% 15 GM CR TOP ×2 (09:04→21:30)
[2019-01-11] MEDS: FLUCONAZOLE 200 MG TAB PO (09:04)
[2019-01-11] MEDS: WARFARIN 1 MG TAB PO (18:18)
[2019-01-11] MEDS: WARFARIN 3 MG TAB PO (19:18)
[2019-01-11] MEDS: ATORVASTATIN 20 MG TAB PO (21:30)
[2019-01-12] MEDS: PIPER-TAZO 3.375 GM IV (PMX) 100 ML IVPB ×5 (00:46→23:07)
[2019-01-12 06:25] LABS: INR 2.36; PROTIME 25.9 Sec (11.9-14.9)
[2019-01-12 06:32] LABS: BLOOD UREA NITROGEN 24 mg/dl (7-20)
[2019-01-12 06:32] LABS: CREATININE 1.28 mg/dl (0.61-1.24)
[2019-01-12] MEDS: TRIAMCINOLONE ACET 0.025% 15 GM CR TOP ×2 (09:12→21:13)
[2019-01-12] MEDS: TRIMETHOPRIM/SULFAMETHOX (DS) TAB PO ×2 (09:12→21:12)
[2019-01-12] MEDS: FLUCONAZOLE 200 MG TAB PO (09:12)
[2019-01-12] MEDS: DOCUSATE SODIUM 100 MG CAP PO ×2 (09:12→21:12)
[2019-01-12] MEDS: WARFARIN 2 MG TAB PO (18:09)
[2019-01-12] MEDS: ATORVASTATIN 20 MG TAB PO (21:12)
[2019-01-13 05:50] LABS: ADD MAN DIFF? NO
[2019-01-13 05:52] LABS: BASOPHIL # 0.1 10^3/ul (0.0-0.1); BASOPHILS % 1.1 % (0.0-2.0); EOSINOPHILS # 0.1 10^3/ul (0.0-0.5); EOSINOPHILS % 1.5 % (0.0-7.0); HEMATOCRIT 44.6 % (42.0-52.0); LYMPHOCYTES # 2.7 10^3/ul (0.8-2.9); LYMPHOCYTES % 41.3 % (15.0-51.0); MEAN CORPUSCULAR HEMOGLOBIN 29.7 pg (29.0-33.0); MEAN CORPUSCULAR HGB CONC 33.6 g/dl (32.0-37.0); MEAN CORPUSCULAR VOLUME 88.3 fl (82.0-101.0); MEAN PLATELET VOLUME 10.2 fl (7.4-10.4); MONOCYTE # 0.5 10^3/ul (0.3-0.9); MONOCYTES % 7.2 % (0.0-11.0); NEUTROPHIL # 3.2 10^3/ul (1.6-7.5); NEUTROPHILS % 48.6 % (39.0-77.0); PLATELET COUNT 288 10^3/UL (140-415); RED BLOOD COUNT 5.05 10^6/ul (4.70-6.10); RED CELL DISTRIBUTION WIDTH 13.5 % (11.5-14.5)
[2019-01-13 05:52] LABS: WHITE BLOOD COUNT 6.5 10^3/ul (4.8-10.8)
[2019-01-13 06:12] LABS: INR 2.23; PROTIME 24.8 Sec (11.9-14.9); PT RATIO 1.9
[2019-01-13] MEDS: PIPER-TAZO 3.375 GM IV (PMX) 100 ML IVPB (06:17)
[2019-01-13] MEDS: FLUCONAZOLE 200 MG TAB PO (09:05)
[2019-01-13] MEDS: DOCUSATE SODIUM 100 MG CAP PO (09:05)
[2019-01-13] MEDS: TRIAMCINOLONE ACET 0.025% 15 GM CR TOP (09:08)
== END 2019-01-13 12:30 | disposition home or self-care (01) | DRG 394 ==
LOC: E/R 10:58 → PP2 14:35
PROVIDERS: Internal Medicine
PROC: 0D9P80Z Drainage of Rectum with Drainage Device, Via Natural or Artificial Opening Endoscopic (ICD-10-PCS; principal; 2019-01-01 18:30)
PROC: 5A09357 Assistance with Respiratory Ventilation, Less than 24 Consecutive Hours, Continuous Positive Airway Pressure (ICD-10-PCS; 2019-01-01 18:38)
DX: K61.39 Other ischiorectal abscess (principal); D68.51 Activated protein C resistance; F17.200 Nicotine dependence, unspecified, uncomplicated; J44.9 Chronic obstructive pulmonary disease, unspecified; G47.33 Obstructive sleep apnea (adult) (pediatric); E78.5 Hyperlipidemia, unspecified; Z79.01 Long term (current) use of anticoagulants; E66.9 Obesity, unspecified; Z68.32 Body mass index [BMI] 32.0-32.9, adult; I87.2 Venous insufficiency (chronic) (peripheral); Z86.718 Personal history of other venous thrombosis and embolism; B96.20 Unspecified Escherichia coli [E. coli] as the cause of diseases classified elsewhere; B95.2 Enterococcus as the cause of diseases classified elsewhere
CPT/HCPCS: 36415; 71045; 74177; 80048; 80053; 80202; 82565; 83735; 84436; 84443; 84520; 85014; 85018; 85025; 85610; 85730; 87040-91; 87070; 87075; 93005; 93970; 94660; 96374; 96375; 96376; 99285-25

== ENCOUNTER → 2019-01-16 | Outpatient (CLI) | payer BC ==
[2019-01-16 09:12] LABS: PROTIME 20.1 Sec (11.9-14.9); PT RATIO 1.6
== END | disposition home or self-care (01) ==
LOC: LAB 08:23
DX: D68.59 Other primary thrombophilia (principal)
CPT/HCPCS: 85610

== ENCOUNTER → 2019-01-20 | Outpatient (CLI) | payer BC ==
[2019-01-20 12:11] LABS: INR 2.07; PROTIME 23.4 Sec (11.9-14.9); PT RATIO 1.8
== END | disposition home or self-care (01) ==
LOC: LAB 11:35
DX: D68.59 Other primary thrombophilia (principal); Z79.01 Long term (current) use of anticoagulants
CPT/HCPCS: 85610

== ENCOUNTER → 2019-05-19 | Outpatient (CLI) | payer BC ==
[2019-05-19 09:49] LABS: ADD MAN DIFF? NO; BASOPHILS % 0.6 % (0.0-2.0); EOSINOPHILS # 0.1 10^3/ul (0.0-0.5); EOSINOPHILS % 1.9 % (0.0-7.0); HEMATOCRIT 46.7 % (42.0-52.0); HEMOGLOBIN 15.6 g/dl (14.0-18.0); LYMPHOCYTES # 1.7 10^3/ul (0.8-2.9); LYMPHOCYTES % 26.6 % (15.0-51.0); MEAN CORPUSCULAR HEMOGLOBIN 30.4 pg (29.0-33.0); MEAN CORPUSCULAR HGB CONC 33.4 g/dl (32.0-37.0); MEAN CORPUSCULAR VOLUME 90.9 fl (82.0-101.0); MEAN PLATELET VOLUME 10.6 fl (7.4-10.4); MONOCYTE # 0.4 10^3/ul (0.3-0.9); MONOCYTES % 6.8 % (0.0-11.0); NEUTROPHIL # 4.1 10^3/ul (1.6-7.5); NEUTROPHILS % 63.8 % (39.0-77.0); PLATELET COUNT 219 10^3/UL (140-415); RED BLOOD COUNT 5.14 10^6/ul (4.70-6.10); RED CELL DISTRIBUTION WIDTH 13.1 % (11.5-14.5)
[2019-05-19 09:49] LABS: WHITE BLOOD COUNT 6.5 10^3/ul (4.8-10.8)
[2019-05-19 10:07] LABS: INR 2.62; PROTIME 28.1 Sec (11.9-14.9); PT RATIO 2.2
[2019-05-19 10:09] LABS: ALANINE AMINOTRANSFERASE 24 IU/L (13-69); ALBUMIN 3.9 g/dl (3.3-4.9); ALKALINE PHOSPHATASE 73 IU/L (42-121); ANION GAP 7 (5-13); ASPARTATE AMINO TRANSFERASE 24 IU/L (15-46); BILIRUBIN,INDIRECT 1.2 mg/dl (0-1.1); BILIRUBIN,TOTAL 1.2 mg/dl (0.2-1.3); BLOOD UREA NITROGEN 20 mg/dl (7-20); CALCIUM 9.2 mg/dl (8.4-10.2); CARBON DIOXIDE 28 mmol/L (21-31); CHLORIDE 106 mmol/L (97-110); CHOL/HDL RATIO 4.1 RATIO; CHOLESTEROL 154 mg/dl (100-200); CREATININE 0.82 mg/dl (0.61-1.24); Estimated GFR > 60 mL/min (>60); GLUCOSE 113 mg/dl (70-220); HDL CHOLESTEROL 37 mg/dl (30-78); LDL CHOLESTEROL,CALCULATED 96 mg/dl; POTASSIUM 3.6 mmol/L (3.5-5.1); SODIUM 141 mmol/L (135-144); TOTAL PROTEIN 6.9 g/dl (6.1-8.1); TRIGLYCERIDES 103 mg/dl (0-149)
[2019-05-19 11:42] LABS: HEMOGLOBIN A1C 5.5 % (0-5.9)
== END | disposition home or self-care (01) ==
LOC: LAB 09:16
DX: E78.5 Hyperlipidemia, unspecified (principal); E55.9 Vitamin D deficiency, unspecified; D68.59 Other primary thrombophilia; R73.03 Prediabetes
CPT/HCPCS: 80053; 80061; 82306; 83036; 85025; 85610